=== PATIENT | male | born 1950 ===

== ENCOUNTER 2017-03-03 09:43 | Day surgery (SDC) | payer OTHER ==
[~2017-03-03] VITALS: Ht 195.6 cm; Wt 108.0 kg
[~2017-03-03 09:43] MED LIST: ACETAMINOPHEN 500 MG TAB (TYLENOL) PO PRN; ASCO250T8 PO; CANA300T PO; CHONDROITIN/HYALURONATE (DISCOVISC) 1 ML SYR IO ONE; CINN500C14 PO; DIPH25TA31 PO; FERR240T9 PO; METF1000 PO; MULT-178 PO; OMEG500C PO; PHENYLEPHRINE/KETOROLAC 4 ML VIAL IO ONE; ROSU10TA24 PO; SODIUM CHLORIDE FLUSH 3 ML SYR IV PRN; TETRACAINE 0.5% OPHTHALMIC SOLUTION 4 ML BTL ONE; VITA1TAB17 PO; diphenhydrAMINE 50 MG/ML INJ (BENADRYL) IV PRN
--- OUTSIDE RECORDS SUMMARY | 2017-03-03 09:45 | XMS REPORT | Continuity of Care Document ---
Author Author [facility] Address Unknown Phone Unavailable Care Team Providers Care Painter Plate Name Role Phone EZEKIEL GUTIÉRREZ MD PCP [phone] Insurance Providers Payer Name Policy Number Subscriber Name Relationship [facility] [id number] Simeon Alexander 20 Self / Same As Patient [id number] Simeon Alexander 20 Self / Same As Patient Advance Directives Directive Response Recorded Date/Time Advanced Directives No 02/03/17 9:55am Problems Active Problems Medical Problem Onset Date Status Decreased vision Unknown Acute Medications Current Home Medications Medication Dose Units Route Directions Days/Qty Instructions Start Date Rosuvastatin Calcium 10 Mg 10 Mg ORAL Bedtime 30 01/31/17 Metformin Hcl (Glucophage) 1,000 Mg 1,000 Mg ORAL Twice A Day 60 01/31 Canagliflozin 300 Mg 300 Mg ORAL Daily 30 01/31/17 Ascorbic Acid 250 Mg 250 Mg ORAL Daily 01/31/17 Vitamin B Complex 1 Each 1 Each ORAL Daily 01/31/17 [place]-3 Fatty Acids 500 Mg 500 Mg ORAL Daily 01/31/17 Cinnamon Bark 500 Mg 500 Mg ORAL Daily 01/31/17 Ferrous Gluconate 240 Mg 240 Mg ORAL Daily 01/31/17 Multivitamin 1 Each 1 Each ORAL Daily 01/31/17 Diphenhydramine Hcl 25 Mg 25 Mg ORAL Daily 01/31/17 Social History Social History Problem Response Recorded Date/Time Onset Date Status Occupation or Former Occupation [employer] 02/03/2017 9:53am Query Response Start Date Stop Date Smoking Status Former smoker Hospital Discharge Instructions No hospital discharge instructions. Plan of Care Discharge Date 02/03/17 10:18am Prescriptions See Medication Section Functional Status No functional status results. Allergies, Adverse Reactions, Alerts Allergen Type Severity Reaction Status Last Updated Iodinated Contrast Media - Oral and Allergy Unknown Active 01/31/17 Immunizations No immunization records. Vital Signs Acute Vital Signs Vital Response Date/Time Temperature (Fahrenheit) 98.3 02/03/2017 9:55am Pulse 78 bpm 02/03/2017 9:55am Respirations 20 02/03/2017 9:55am Height 6 ft 5 in Weight 253 lb Body Mass Index 30.0 kg/m^2 Results No known relevant diagnostic tests, laboratory data and/or discharge summary. Procedures No known history of procedures. Encounters Encounter Location Arrival/Admit Date Discharge/Depart Date Attending Provider Departed [facility] 02/03/17 9:29am 02/03/17 10: 18am SYD RUBI MD Recent Diagnosis Decreased vision
[2017-03-03 10:10] VITALS: BP 130/96
[2017-03-03] MEDS ORDERED: LEVALBUTEROL 1.25 MG/0.5 ML (XOPENEX) NEB INH ONE (10:15)
[2017-03-03] MEDS ORDERED: LEVO500T80 PO (10:16)
[2017-03-03] MEDS: LIDOCAINE 3.5% OPHTH GEL (AKTEN) 1 ML BTL OD SCH ×4 (10:32→11:03)
[2017-03-03] MEDS: CATARACT PRE-OP EYE DROPS 0.5ML SYRINGE OD SCH ×3 (10:42→11:03)
[2017-03-03] MEDS: HOME MEDICATION OD SCH ×3 (10:42→11:03)
[2017-03-03] MEDS ORDERED: MIDAZOLAM 2 MG/2 ML (VERSED) VIAL ONE (11:07)
[2017-03-03] MEDS ORDERED: diphenhydrAMINE 50 MG/ML INJ (BENADRYL) ONE (11:19)
[2017-03-03 12:03] VITALS: BP 139/88
== END 2017-03-03 12:17 | disposition home or self-care (01) ==
LOC: ASC 09:43
PROVIDERS: ATTEND Ophthalmology
DX: H25.11 Age-related nuclear cataract, right eye (principal); E11.9 Type 2 diabetes mellitus without complications; E78.5 Hyperlipidemia, unspecified; Z79.84 Long term (current) use of oral hypoglycemic drugs
CPT/HCPCS: 66984; 94640; C9447; J1200; J2250; V2632